=== PATIENT | female | born 1990 | race Caucasian/White ===

== ENCOUNTER 2019-10-23 13:31 | Emergency (ER) | payer OTHER ==
[~2019-10-23] VITALS: Ht 165.1 cm; Wt 94.8 kg
[2019-10-23 13:35] VITALS: Ht 165.1 cm; Wt 94.8 kg
[2019-10-23 14:23] VITALS: BP 118/70
== END 2019-10-23 14:23 | disposition home or self-care (01) ==
LOC: ED 13:31
DX: R51 Headache (principal); Z90.49 Acquired absence of other specified parts of digestive tract
CPT/HCPCS: J1885

== ENCOUNTER 2020-01-21 05:40 | Emergency (ER) | payer MEDICAID ==
[~2020-01-21] VITALS: Ht 165.1 cm; Wt 95.3 kg
[2020-01-21 05:47] VITALS: BP 130/81; Ht 165.1 cm; Wt 95.3 kg
== END 2020-01-21 07:11 | disposition home or self-care (01) ==
LOC: ED 05:40
DX: A53.9 Syphilis, unspecified (principal); F17.210 Nicotine dependence, cigarettes, uncomplicated; Z90.49 Acquired absence of other specified parts of digestive tract
CPT/HCPCS: 99406; J0561

== ENCOUNTER 2020-06-06 22:29 | Emergency (ER) | payer MEDICAID ==
[~2020-06-06] VITALS: Ht 165.1 cm; Wt 99.8 kg
[2020-06-06 22:43] VITALS: Ht 165.1 cm; Wt 99.8 kg
[2020-06-07 03:30] VITALS: BP 111/78
[2020-06-08 08:06] LABS: RAPID PLASMA REAGIN Non Reactive (Non Reactive)
== END 2020-06-07 03:30 | disposition home or self-care (01) ==
LOC: ED 22:29
PROVIDERS: Emergency Medicine
DX: A53.9 Syphilis, unspecified (principal); Z13.9 Encounter for screening, unspecified
CPT/HCPCS: J0561

== ENCOUNTER 2020-07-27 19:49 | Emergency (ER) | payer MEDICAID ==
[~2020-07-27] VITALS: Ht 165.1 cm; Wt 106.6 kg
[2020-07-27 19:56] VITALS: BP 130/50; Ht 165.1 cm; Wt 106.6 kg
[2020-07-27 22:00] LABS: BASOPHIL % 0.4 % (0.2-1.3); PLATELET COUNT 299 x10^3mcL (179-408); RED CELL DISTRIBUTION WIDTH 13.6 % (12.3-17.7)
[2020-07-27 22:17] LABS: CALCIUM 8.4 mg/dL (8.5-10.1); CARBON DIOXIDE 28.3 mmol/L (21-32); CHLORIDE SERUM 100 mmol/L (98-107); CREATININE SERUM 0.6 mg/dL (0.6-1.0); GFR1 > 60 mL/min; GLUCOSE SERUM 93 mg/dL (74-106); POTASSIUM SERUM 3.8 mmol/L (3.5-5.1); SODIUM SERUM 138 mmol/L (136-145)
[2020-07-27 22:22] LABS: ALKALINE PHOSPHATASE 82 U/L (46-116); ALT/SGPT 33 U/L (14-59); AST/SGOT 20 U/L (15-37); BILIRUBIN TOTAL 0.1 mg/dL (0.20-1.00)
[2020-07-27 22:25] LABS: ALBUMIN 3.3 g/dL (3.4-5.0)
== END 2020-07-27 22:41 | disposition left against medical advice (07) ==
LOC: ED 19:49
PROVIDERS: Emergency Medicine
DX: O26.891 Other specified pregnancy related conditions, first trimester (principal); R11.2 Nausea with vomiting, unspecified; Z90.49 Acquired absence of other specified parts of digestive tract